=== PATIENT | female | born 1995 | race Caucasian/White ===

== ENCOUNTER 2019-05-10 18:43 | Emergency (ER) | payer BC ==
[2019-05-10 19:29] VITALS: BP 189/97
--- NOTE | 2019-05-10 19:33 | EDM.PDOC ---
ED HPI GENERAL MEDICAL PROBLEM - General Chief Complaint: ENT Problem Stated Complaint: SORE THROAT Time Seen by Provider: 05/10/19 19:23 Source of Information: Reports: Patient - History of Present Illness INITIAL COMMENTS - FREE TEXT/NARRATIVE: HISTORY AND PHYSICAL: History of present illness: [Patient presents with sore throat increasing in severity over the last 2 weeks , she was seen previously and placed on Augmentin with no benefit she has previous strep testing which was negative as well as Blaine testing No current fever nausea vomiting chills sweats] Review of systems: As per history of present illness and below otherwise all systems reviewed and negative. Past medical history: As per history of present illness and as reviewed below otherwise noncontributory. Surgical history: As per history of present illness and as reviewed below otherwise noncontributory. Social history: No reported history of drug or alcohol abuse. Family history: As per history of present illness and as reviewed below otherwise noncontributory. Physical exam: HEENT: Atraumatic, normocephalic, pupils reactive, negative for conjunctival pallor or scleral icterus, mucous membranes moist, throat clear, neck supple, nontender, trachea midline. Moderate erythema no exudates Lungs: Clear to auscultation, breath sounds equal bilaterally, chest nontender. Heart: S1S2, regular, negative for clicks, rubs, or JVD. Abdomen: Soft, nondistended, nontender. Negative for masses or hepatosplenomegaly. Negative for costovertebral tenderness. Pelvis: Stable nontender. Genitourinary: Deferred. Rectal: Deferred. Extremities: Atraumatic, negative for cords or calf pain. Neurovascular unremarkable. Neuro: Awake, alert, oriented. Cranial nerves II through XII unremarkable. Cerebellum unremarkable. Motor and sensory unremarkable throughout. Exam nonfocal. Diagnostics: [Previous testing on file for strep and mono ] Therapeutics: [Cipro 500 by mouth twice a day #20 no refill Prednisone 20 mg by mouth daily #5 no refill Tylenol No. 3 Recommend ENT follow-up for persistent sore throat primary care in the interim impression: [ pharyngitis ] Definitive disposition and diagnosis as appropriate pending reevaluation and review of above. Throat Pain Score (Numeric/FACES): 10 - Related Data Allergies Allergy/AdvReac Type Severity Reaction Status Date / Time No Known Allergies Allergy Verified 05/10/19 19:14 Home Meds: Home Meds Non-Formulary Medication [NF Drug] 05/10/19 [History] Past Medical History HEENT History: Reports: Otitis Media Gastrointestinal History: Reports: Other (See Below) Other Gastrointestinal History: reflux - Past Surgical History HEENT Surgical History: Reports: Tonsillectomy Social & Family History - Tobacco Use Smoking Status *Q: Never Smoker - Caffeine Use Caffeine Use: Reports: None - Recreational Drug Use Recreational Drug Use: No ED ROS GENERAL - Review of Systems Review Of Systems: See Below ED EXAM, GENERAL - Physical Exam Exam: See Below Course - Vital Signs Last Recorded V/S: Last Vital Signs Temp 99.2 F 05/10/19 19:11 Pulse 100 05/10/19 19:11 Resp 18 05/10/19 19:11 BP 94/54 L 05/10/19 19:11 Pulse Ox 100 05/10/19 19:11 - Orders/Labs/Meds Orders: Active Orders 24 hr Category Date Time Status STREP SCRN A RAPID W CULT CONF [RM] Stat Lab 05/10/19 19:20 Received Departure - Departure Time of Disposition: 19:31 Disposition: Home, Self-Care 01 Condition: Good Clinical Impression: Pharyngitis - Discharge Information Referrals: Amber Tipton, JEFFREY [Primary Care Provider] - Additional Instructions: Education as prescribed Follow-up with ENT if sore throat persists or worsens spite multiple antibiotic treatments, [facility] in mind that her ENT options of sounds that you are familiar with [facility] and follow-up care to this facility is a good option at this time Follow-up primary care in the interim as needed [facility] - Primary Care [address] [place] [id number] The following information is given to patients seen in the emergency department who are being discharged to home. This information is to outline your options for follow-up care. We provide all patients seen in our emergency department with a follow-up referral. The need for follow-up, as well as the timing and circumstances, are variable depending upon the specifics of your emergency department visit. If you don't have a primary care physician on staff, we will provide you with a referral. We always advise you to contact your personal physician following an emergency department visit to inform them of the circumstance of the visit and for follow-up with them and/or the need for any referrals to a consulting specialist. The emergency department will also refer you to a specialist when appropriate. This referral assures that you have the opportunity for follow-up care with a specialist. All of these measure are taken in an effort to provide you with optimal care, which includes your follow-up. Under all circumstances we always encourage you to contact your private physician who remains a resource for coordinating your care. When calling for follow-up care, please make the office aware that this follow-up is from your recent emergency room visit. If for any reason you are refused follow-up, please contact the [facility] emergency department at and asked to speak to the emergency department charge nurse. - My Orders Last 24 Hours: My Active Orders 05/10/19 19:20 STREP SCRN A RAPID W CULT CONF [RM] Stat - Assessment/Plan Last 24 Hours: My Active Orders 05/10/19 19:20 STREP SCRN A RAPID W CULT CONF [RM] Stat
== END 2019-05-10 19:46 | disposition home or self-care (01) ==
LOC: MW.ED 18:43
DX: J02.9 Acute pharyngitis, unspecified (principal)
CPT/HCPCS: 87081; 87880-QW; 99283

== ENCOUNTER 2019-07-27 20:10 | Emergency (ER) | payer BC ==
[2019-07-27 20:22] VITALS: BP 142/88
--- NOTE | 2019-07-27 20:42 | EDM.PDOC ---
ED HPI GENERAL MEDICAL PROBLEM - General Chief Complaint: Upper Extremity Injury/Pain Stated Complaint: LEFT FINGER JAM Time Seen by Provider: 07/27/19 20:11 Source of Information: Reports: Patient History Limitations: Reports: No Limitations - History of Present Illness INITIAL COMMENTS - FREE TEXT/NARRATIVE: HISTORY AND PHYSICAL: History of present illness: Patient is a 23-year-old female who presents to the emergency room today with complaints of left thumb pain. She states this morning while at work she had slammed her finger into a drawer resulting in pain and soft tissue swelling. She states she tried to perform supportive care measures at home hoping it would improve. She states she continues to have pain with range of motion or use of the hand. Patient denies any fever, chills, headache, change in vision, syncope or near syncope. Denies any chest pain, back pain, shortness of breath or cough. Denies any GI or symptoms. Patient has been eating and drinking appropriately. Review of systems: As per history of present illness and below otherwise all systems reviewed and negative. Past medical history: As per history of present illness and as reviewed below otherwise noncontributory. Surgical history: As per history of present illness and as reviewed below otherwise noncontributory. Social history: See social history for further information Family history: As per history of present illness and as reviewed below otherwise noncontributory. Physical exam: General: Well-developed and well-nourished 23-year-old female. Alert and oriented. Nontoxic appearing and in no acute distress. Vital signs are stable and have been reviewed by me. HEENT: Atraumatic, normocephalic, pupils equal and reactive bilaterally, negative for conjunctival pallor or scleral icterus, mucous membranes moist, trachea midline. No drooling or trismus noted. No meningeal signs. No hot potato voice noted. Lungs: Clear to auscultation, breath sounds equal bilaterally, chest nontender. Heart: S1S2, regular rate and rhythm without overt murmur Abdomen: Soft, nondistended, nontender. Skin: Soft tissue swelling with mild erythema at the base of the left thumb. Otherwise skin is intact, warm, dry. No lesions or rashes noted. Extremities: Pain with palpation at the mid/base of the left thumb with soft tissue swelling. No snuffbox tenderness. Capillary refill less than 3 seconds. She moves all extremities per self without difficulty or deficits, strong radial pulse. Neurovascular unremarkable. Neuro: Awake, alert, oriented. Cranial nerves II through XII unremarkable. Cerebellum unremarkable. Motor and sensory unremarkable throughout. Exam nonfocal. Notes: X-ray shows no acute findings. Patient was fitted with a thumb spica splint. Supportive care measures were reviewed and discussed. Voices understanding and is agreeable to plan of care. Denies any further questions or concerns at this time. Diagnostics: X-ray Therapeutics: Splint, Toradol Prescription: None Impression: Crush Injury Plan: 1. Rest, ice, elevate the affected extremity. Please wear the splint as directed. 2. Tylenol and/or Ibuprofen as needed for pain management. 3. Follow up with the Orthopedic provider as we discussed. Return to the ED as needed and as discussed. Definitive disposition and diagnosis as appropriate pending reevaluation and review of above. LEFT THUMB Pain Score (Numeric/FACES): 5 - Related Data Allergies Allergy/AdvReac Type Severity Reaction Status Date / Time No Known Allergies Allergy Verified 07/27/19 20:22 Home Meds: Home Meds Non-Formulary Medication [NF Drug] 05/10/19 [History] Past Medical History - Past Health History Medical/Surgical History: Denies Medical/Surgical History HEENT History: Reports: Otitis Media Gastrointestinal History: Reports: Other (See Below) Other Gastrointestinal History: reflux - Past Surgical History HEENT Surgical History: Reports: Tonsillectomy Social & Family History - Family History Family Medical History: Noncontributory - Tobacco Use Smoking Status *Q: Never Smoker - Caffeine Use Caffeine Use: Reports: None - Recreational Drug Use Recreational Drug Use: No Review of Systems - Review of Systems Review Of Systems: ROS reveals no pertinent complaints other than HPI. ED EXAM, GENERAL - Physical Exam Exam: See Below (See dictation) Course - Vital Signs Last Recorded V/S: Last Vital Signs Temp 98.7 F 07/27/19 20:21 Pulse 85 07/27/19 20:21 Resp 16 07/27/19 20:21 BP 142/88 H 07/27/19 20:21 Pulse Ox 98 07/27/19 20:21 - Orders/Labs/Meds Orders: Active Orders 24 hr Category Date Time Status Ketorolac [Toradol] Med 07/27/19 20:54 Once 60 mg IM ONETIME ONE DME for Discharge [COMM] Stat Oth 07/27/19 20:54 Ordered Departure - Departure Time of Disposition: 20:56 Disposition: Home, Self-Care 01 Clinical Impression: Crush injury - Discharge Information Instructions: Crush Injury of the Hand, [id number] Referrals: Norma Garcia, RAILROAD COMMISSIONER [Primary Care Provider] - Forms: ED Department Discharge Additional Instructions: The following information is given to patients seen in the emergency department who are being discharged to home. This information is to outline your options for follow-up care. We provide all patients seen in our emergency department with a follow-up referral. The need for follow-up, as well as the timing and circumstances, are variable depending upon the specifics of your emergency department visit. If you don't have a primary care physician on staff, we will provide you with a referral. We always advise you to contact your personal physician following an emergency department visit to inform them of the circumstance of the visit and for follow-up with them and/or the need for any referrals to a consulting specialist. The emergency department will also refer you to a specialist when appropriate. This referral assures that you have the opportunity for follow-up care with a specialist. All of these measure are taken in an effort to provide you with optimal care, which includes your follow-up. Under all circumstances we always encourage you to contact your private physician who remains a resource for coordinating your care. When calling for follow-up care, please make the office aware that this follow-up is from your recent emergency room visit. If for any reason you are refused follow-up, please contact the [facility] Emergency Department at and asked to speak to the emergency department charge nurse. [facility] [address] [place] [address] [id number] [address] [address] 1. Rest, ice, elevate the affected extremity. Please wear the splint as directed. 2. Tylenol and/or Ibuprofen as needed for pain management. 3. Follow up with the Orthopedic provider as we discussed. Return to the ED as needed and as discussed. - My Orders Last 24 Hours: My Active Orders 07/27/19 20:54 Ketorolac [Toradol] 60 mg IM ONETIME ONE DME for Discharge [COMM] Stat - Assessment/Plan Last 24 Hours: My Active Orders 07/27/19 20:54 Ketorolac [Toradol] 60 mg IM ONETIME ONE DME for Discharge [COMM] Stat
--- NOTE | 2019-07-27 20:48 | CR ---
INDICATION: Pain after thumb slammed in a desk drawer. COMPARISON: None available. FINDINGS: The left thumb is examined with PA, lateral, and oblique views. There is no sign of fracture or dislocation. The soft tissues are normal in appearance without sign of radio-opaque foreign body. No significant degenerative disease is seen. IMPRESSION: Normal left thumb. Dictated by Darien Molina MD @ Jul 27 2019 8:45PM Signed by Dr. Darien Molina @ Jul 27 2019 8:46PM
[2019-07-27] MEDS ORDERED: Ketorolac 60 MG/2 ML SDV IM ONE (20:54)
[2019-07-27 21:18] VITALS: PULSE 95
== END 2019-07-27 21:28 | disposition home or self-care (01) ==
LOC: MW.ED 20:10
DX: S67.02XA Crushing injury of left thumb, initial encounter (principal); Z98.890 Other specified postprocedural states; W23.1XXA Caught, crushed, jammed, or pinched between stationary objects, initial encounter; Y99.0 Civilian activity done for income or pay
CPT/HCPCS: 73140; 96372; 99283; J1885; 99282

== ENCOUNTER 2020-11-25 07:18 | Emergency (ER) | payer BC, OTHER ==
--- NOTE | 2020-11-25 07:27 | EDM.PDOC ---
ED HPI GENERAL MEDICAL PROBLEM - General Chief Complaint: Laceration Stated Complaint: CUT ON LEFT HAND Time Seen by Provider: 11/25/20 07:21 Source of Information: Reports: Patient History Limitations: Reports: No Limitations - History of Present Illness INITIAL COMMENTS - FREE TEXT/NARRATIVE: 25-year-old female no relevant past medical history presents for laceration to left hand. Patient dropped a knife and was reaching for it as it was falling with her nondominant, left hand when the knife pierced her skin in the webbing between her thumb and second digit. Bleeding was well controlled prior to arrival. The patient's tetanus vaccination is not up-to-date so she will require booster. She retains the ability to move all of her digits and has intact sensation. She has no other complaints or injuries. L hand Pain Score (Numeric/FACES): 6 - Related Data Allergies Allergy/AdvReac Type Severity Reaction Status Date / Time No Known Allergies Allergy Verified 11/25/20 07:38 Home Meds: Home Meds Control 11/25/20 [History] Venlafaxine [Effexor] 75 mg PO DAILY 11/25/20 [History] Past Medical History - Past Health History Medical/Surgical History: Denies Medical/Surgical History HEENT History: Reports: Otitis Media Gastrointestinal History: Reports: Other (See Below) Other Gastrointestinal History: reflux - Past Surgical History HEENT Surgical History: Reports: Tonsillectomy Social & Family History - Family History Family Medical History: No Pertinent Family History - Caffeine Use Caffeine Use: Reports: None ED ROS GENERAL - Review of Systems Review Of Systems: Comprehensive ROS is negative, except as noted in HPI. ED EXAM, SKIN/RASH Exam: See Below Exam Limited By: No Limitations General Appearance: Alert, WD/WN, No Apparent Distress Throat/Mouth: Normal Voice, No Airway Compromise Head: Atraumatic, Normocephalic Neck: Normal Inspection Respiratory/Chest: No Respiratory Distress, No Accessory Muscle Use Cardiovascular: Normal Peripheral Pulses Extremities: Other (1.5-cm liner, clean laceration to webbing btwn thumb and 2nd digit of left hand, perserved ROM of all digits, perserved sensation, normal radial pulse, normal color/capillary refill, no active bleeding, clean without FBs) Psychiatric: Normal Affect, Normal Mood Skin: Warm, Dry, Intact, Normal Color ED SKIN PROCEDURES - Laceration/Wound Repair Left Hand Appearance: Superficial, Subcutaneous Distal NVT: Neuro & Vascular Intact Anesthetic Type: Local Local Anesthesia - Lidocaine (Xylocaine): 1% with EPI Local Anesthetic Volume: 4cc Skin Prep: Chlorhexidine (Hibiciens) Saline Irrigation (cc's): 50 Closed with: Sutures Lac/Wound length In cm: 1.5 Suture Size: 5-0 # of Sutures: 3 Suture Type: Nylon Tetanus Status Addressed: No Complications: No Course - Vital Signs Last Recorded V/S: Last Vital Signs Temp 98.2 F 11/25/20 07:23 Pulse 92 11/25/20 07:23 Resp 16 11/25/20 07:23 BP 150/104 H 11/25/20 07:23 Pulse Ox 99 11/25/20 07:23 - Orders/Labs/Meds Orders: Active Orders 24 hr Category Date Time Status Vaccines to be Administered [RC] PER UNIT ROUTINE Care 11/25/20 07:36 Active Meds: Medications Discontinued Medications Generic Name Dose Route Start Last Admin Trade Name Amy PRN Reason Stop Dose Admin Diphtheria/Tetanus/Acell Pertussis 0.5 ml 11/25/20 07:36 11/25/20 07:46 Boostrix IM 11/25/20 07:37 0.5 ml .ONCE ONE Administration Lidocaine/Epinephrine 20 ml 11/25/20 07:36 11/25/20 07:49 Xylocaine 1% With Epinephrine 1:100,000 INJECT 11/25/20 07:37 Not Given ONETIME ONE Lidocaine/Epinephrine Confirm 11/25/20 07:40 11/25/20 07:49 Xylocaine 1% With Epinephrine 1:100,000 Administered 11/25/20 07:41 20 ml Dose Administration 20 ml .ROUTE .STK-MED ONE Departure - Departure Time of Disposition: 07:40 Disposition: Home, Self-Care 01 Condition: Good Clinical Impression: Laceration - Discharge Information Instructions: Laceration Care, Adult, [id number] Referrals: Norma Garcia TRAFFIC CONTROLLER CABLE [Primary Care Provider] - Forms: ED Department Discharge Additional Instructions: You had stitches placed into a laceration on your left hand. You should keep this area dry unless you are actively washing it. Do not submerge your hand in dirty water such as swimming pool, padilla, dirty dishes. You can wash it with soap and water. Look for signs of infection which include redness, drainage of pus, swelling, increased pain. This is unlikely in this type of injury. You need to either come back to the emergency department, an urgent care center, or your primary care physician in 7 to 10 days to have the stitches removed. If you have any questions you are always welcome to call or emergency department and speak with one of the nurses. The following information is given to patients seen in the emergency department who are being discharged to home. This information is to outline your options for follow-up care. We provide all patients seen in our emergency department with a follow-up referral. The need for follow-up, as well as the timing and circumstances, are variable depending upon the specifics of your emergency department visit. If you don't have a primary care physician on staff, we will provide you with a referral. We always advise you to contact your personal physician following an emergency department visit to inform them of the circumstance of the visit and for follow-up with them and/or the need for any referrals to a consulting specialist. The emergency department will also refer you to a specialist when appropriate. This referral assures that you have the opportunity for follow-up care with a specialist. All of these measure are taken in an effort to provide you with optimal care, which includes your follow-up. Under all circumstances we always encourage you to contact your private physician who remains a resource for coordinating your care. When calling for follow-up care, please make the office aware that this follow-up is from your recent emergency room visit. If for any reason you are refused follow-up, please contact the [facility] Emergency Department at and asked to speak to the emergency department charge nurse. Please follow up with your primary care physician. If you do not have a primary care physician, see below: [facility] [address] [place] [id number] [facility] [address] [place] [id number] [facility] [address] [place] [address] Sepsis Event Note (ED) - Focused Exam Vital Signs: Vital Signs Temp Pulse Resp BP Pulse Ox 11/25/20 07:23 98.2 F 92 16 150/104 H 99 - My Orders Last 24 Hours: My Active Orders 11/25/20 07:36 Vaccines to be Administered [RC] PER UNIT ROUTINE - Assessment/Plan Last 24 Hours: My Active Orders 11/25/20 07:36 Vaccines to be Administered [RC] PER UNIT ROUTINE
[2020-11-25] MEDS ORDERED: Lidocaine 1% with EPINEPHrine 1:100,000 10 ML MDV INJECT ONE (07:36)
[2020-11-25] MEDS ORDERED: Diphtheria,Pertussis(Acell),Tetanus Vaccine 0.5 ML Syringe IM ONE (07:36)
[2020-11-25] MEDS ORDERED: Lidocaine 1% with EPINEPHrine 1:100,000 20 ML MDV ONE (07:40)
[2020-11-25 08:18] VITALS: BP 141/95; PULSE 73
== END 2020-11-25 08:15 | disposition home or self-care (01) ==
LOC: MW.ED 07:18
DX: S61.412A Laceration without foreign body of left hand, initial encounter (principal); Z23 Encounter for immunization; W26.0XXA Contact with knife, initial encounter
CPT/HCPCS: 12001; 90471; 99282; 99282-25

== ENCOUNTER 2022-08-10 20:04 | Emergency (ER) | payer BC ==
[2022-08-10] MEDS: Sodium Chloride 0.9% 1,000 ML IV ONE (21:30)
[2022-08-10] MEDS: Ketorolac 30 MG/ML SDV IVPUSH ONE (21:30)
[2022-08-10] MEDS: diphenhydrAMINE 50 MG/ML SDV IVPUSH ONE (21:31)
[2022-08-10] MEDS: Ondansetron 4 MG/2 ML SDV IVPUSH ONE (21:31)
[2022-08-10] MEDS: Metoclopramide 10 MG/2 ML SDV IV ONE (21:31)
[2022-08-10 22:07] VITALS: BP 144/88; PULSE 101
== END 2022-08-10 22:48 | disposition home or self-care (01) ==
LOC: MW.ED 20:04
DX: G43.909 Migraine, unspecified, not intractable, without status migrainosus (principal); Z79.899 Other long term (current) drug therapy
CPT/HCPCS: 96361; 96374; 96375; 96376; 99283; J1200; J1885; J2405; J2765; J7030

== ENCOUNTER 2022-08-25 00:38 | Emergency (ER) | payer BC ==
[2022-08-25] MEDS ORDERED: Sulfamethoxazole/Trimethoprim 800-160 MG Tab PO ONE (02:28)
[2022-08-25 02:44] VITALS: BP 132/78; PULSE 88
== END 2022-08-25 02:40 | disposition home or self-care (01) ==
LOC: MW.ED 00:38
DX: N39.0 Urinary tract infection, site not specified (principal)
CPT/HCPCS: 81001; 87086; 99283; A9270

== ENCOUNTER 2023-09-29 17:22 | Emergency (ER) | payer OTHER, BC ==
[2023-09-29] MEDS ORDERED: Acetaminophen 500 MG Tab PO ONE (17:31)
[2023-09-29 17:42] LABS: BILIRUBIN,URINE NEGATIVE (NEGATIVE); COLOR,URINE YELLOW; GLUCOSE,URINE NEGATIVE (NEGATIVE); KETONES,URINE NEGATIVE (NEGATIVE); LEUKOCYTE ESTERASE,URINE NEGATIVE (NEGATIVE); NITRITE,URINE NEGATIVE (NEGATIVE); OCCULT BLOOD,URINE NEGATIVE (NEGATIVE); PH,URINE 6.5 (5.0-8.0); PROTEIN,URINE 100 mg/dL (NEGATIVE); UROBILINOGEN,URINE 0.2 EU/dL (<2.0)
[2023-09-29 17:56] LABS: APPEARANCE,URINE SLT CLOUDY
[2023-09-29 17:57] LABS: BACTERIA,URINE 2+ (NEGATIVE); EPITHELIAL CELLS,URINE MODERATE (NONE-FEW); RBC,URINE 0-1 (0-2/HPF)
[2023-09-29 17:58] LABS: MUCUS,URINE FEW (NONE-MOD)
[2023-09-29 18:29] VITALS: BP 162/105; PULSE 80
== END 2023-09-29 18:15 | disposition home or self-care (01) ==
LOC: MW.ED 17:22
DX: O99.891 Other specified diseases and conditions complicating pregnancy (principal); M54.50 Low back pain, unspecified; O99.211 Obesity complicating pregnancy, first trimester; E66.9 Obesity, unspecified; Z3A.13 13 weeks gestation of pregnancy; V43.52XA Car driver injured in collision with other type car in traffic accident, initial encounter; Y92.410 Unspecified street and highway as the place of occurrence of the external cause
CPT/HCPCS: 81001; 99284; A9270; 99283

== ENCOUNTER 2025-09-29 11:39 | Emergency (ER) | payer BC ==
[2025-09-29 12:34] LABS: BASOPHILS ABSOLUTE AUTO 0.02 K/uL (0.00-0.20); BASOPHILS PERCENT AUTO 0.2 % (0.0-1.0); EOSINOPHILS ABSOLUTE AUTO 0.15 K/uL (0.00-0.45); EOSINOPHILS PERCENT AUTO 1.7 % (0.0-6.0); IMMATURE GRAN ABSOLUTE AUTO 0.02 K/uL (0.00-0.05); IMMATURE GRAN PERCENT AUTO 0.2 % (0.0-0.4); LYMPHOCYTES ABSOLUTE AUTO 2.32 K/uL (1.00-4.80); LYMPHOCYTES PERCENT AUTO 25.7 % (24.0-44.0); MEAN PLATELET VOLUME 8.6 fL (9.4-12.3); MONOCYTES ABSOLUTE AUTO 0.40 K/uL (0.00-0.80); MONOCYTES PERCENT AUTO 4.4 % (0.0-8.0); NEUTROPHILS ABSOLUTE AUTO 6.10 K/uL (1.80-7.70); NEUTROPHILS PERCENT AUTO 67.8 % (41.0-71.0); NRBC ABSOLUTE 0.00 K/uL (0.00-0.02); NRBC PERCENT 0.0 /100WBC (0.0-0.2); PLATELET COUNT,PLT 261 K/uL (150-400); RED BLOOD CELL COUNT 4.35 M/uL (4.10-5.30); WHITE BLOOD CELL COUNT,WBC 9.01 K/uL (3.9-11.3)
[2025-09-29 12:53] LABS: APPEARANCE,URINE SLT CLOUDY; GLUCOSE,URINE NEGATIVE (NEGATIVE); OCCULT BLOOD,URINE NEGATIVE (NEGATIVE)
[2025-09-29 13:03] LABS: A/G RATIO 0.8 (0.9-1.6); ALANINE AMINOTRANSFERASE,ALT 37.0 IU/L (14-63); ASPARTATE AMNIOTRANSFERASE,AST 17.0 IU/L (15-37); BILIRUBIN TOTAL 0.2 mg/dL (0.2-1.0); BLOOD UREA NITROGEN,BUN 7.0 mg/dL (7.0-18.0); CARBON DIOXIDE,CO2 24.1 mmol/L (21.0-32.0); CHLORIDE,CL 105.0 mmol/L (98-107); CREATININE 0.7 mg/dL (0.6-1.0); EST CRCL DRUG DOSING (CG) 102.4 mL/min; GLUCOSE RANDOM 91.0 mg/dL (74-106); POTASSIUM,K 3.9 mmol/L (3.5-5.1); PROTEIN TOTAL,TP 7.0 g/dL (6.4-8.2); SODIUM,NA 137.0 mmol/L (136-145)
[2025-09-29 13:07] LABS: ESTIMATED GFR 120.0 mL/min (>60)
[2025-09-29 14:21] VITALS: BP 124/77; PULSE 75
== END 2025-09-29 14:20 | disposition home or self-care (01) ==
LOC: MW.ED 11:39
DX: O20.0 Threatened abortion (principal); Z91.040 Latex allergy status; Z3A.15 15 weeks gestation of pregnancy
CPT/HCPCS: 36415; 76815; 80053; 81003; 83690; 83735; 84702; 85025; 86900; 86901; 99284; A9270; 99283